=== PATIENT | female | born 1985 | race Caucasian/White ===

== ENCOUNTER 2017-02-12 10:38 | Emergency (ER) | payer OTHER ==
[~2017-02-12] VITALS: Ht 170.2 cm; Wt 45.5 kg
[~2017-02-12 10:38] MED LIST: LEVA500T PO; PERC5TAB12 PO; PROM25TA5 PO
[2017-02-12 10:39] VITALS: BP 132/78; PULSE 90; RESP 20; TEMP 98; O2SAT 99
[2017-02-12 10:58] VITALS: BP 143/67; PULSE 87; RESP 16; TEMP 98.9; O2SAT 100
[2017-02-12] MEDS ORDERED: SODIUM CHLOR 0.9% 1000 ML INJ 1,000 ML IV SCH ×2 (11:22→12:44)
[2017-02-12] MEDS ORDERED: ONDANSETRON HCL 4 MG/2 ML VIAL IVP ONE (11:30)
--- NOTE | 2017-02-12 11:35 | PD ---
HPI Chief Complaint: Cold / Flu Symptoms Time Seen by Provider: 11:32 Travel History International Travel<30 days: No Contact w/Intl Traveler<30days: No Traveled to known affect area: No History of Present Illness HPI 31-year-old female that presents to the ED for evaluation of cold-like symptoms and weakness. Per patient she's had nausea and vomiting as well as diarrhea and generalized weakness for about a week and a half. Per patient she was seen a different hospital and was told that she had the flu. She was not treated with anything per patient. Per patient she's continue her symptoms and the not improving. Per patient she's not had any bowel movements or urine for the past couple days that she cannot keep anything down. Per patient she is dry heaving. Per patient feels very weak. 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 He denies any drug abuse. States having chills and sweats. No sick contacts. No bleeding of any kind. No chest pain or shortness of breath. She denies any vaginal discharge or possibility of . Allergies to codeine, morphine, and mushroom. PFSH Past Medical History Anxiety: Yes Depression: No Cancer: No Cardiovascular Problems: No Chemotherapy: No Diminished Hearing: Yes (RIGHT EAR [place]) Endocrine: No Genitourinary: Yes (UTI'S) Implanted Vascular Access Dvce: No Musculoskeletal: No Neurologic: No Psychiatric: Yes Reproductive: No Respiratory: No Immunizations Current: Yes Pancreatitis: Yes Radiation Therapy: No Influenza Vaccination: No ?: Not LMP: 01/29/17 Menopausal: No : 4 Para: 2 Miscarriage: 1 : 1 Ectopic : Yes (1) Dilation and Curettage (D&C): Yes Past Surgical History Other Surgery: Yes (D&C) Social History Alcohol Use: Yes (20 SHOTS PER DAY (STATES FORMERLY)) Tobacco Use: Yes (1 PPD) Substance Use: Yes (MARIJUANA ) Allergies-Medications (Allergen,Severity, Reaction): Coded Allergies: Morphine (Verified Allergy, Mild, Tachycardia, 02/12/17) Codeine (Verified Allergy, Unknown, UNKNOWN REACTION, 02/12/17) Mushroom (Verified Allergy, Unknown, UNKNOWN REACTION, 02/12/17) Reported Meds & Prescriptions Reported Meds & Active Scripts Active Zofran (Ondansetron HCl) 4 Mg Tab 4 Mg PO Q6HR PRN Amoxicillin 875 Mg Tab 875 Mg PO BID 10 Days Review of Systems Except as stated in HPI: all other systems reviewed are Neg Physical Exam Narrative GENERAL: Well-nourished, well-developed patient in no apparent distress. SKIN: Warm and dry. HEAD: Atraumatic. Normocephalic. EYES: Pupils equal and round reactive to light and accommodation. No scleral icterus. No injection or drainage. ENT: No nasal bleeding or discharge. Mucous membranes pink and moist. TMs are clear with no sign of infection or perforation. No mastoid tenderness. Ear canals are intact bilaterally. No lymphadenopathy. Nostril mucosa is red and moist with clear mucus noted. No sinus tenderness to palpation noted. Tonsils are not enlarged or swollen. No ulvua Deviation. Tongue is midline. NECK: Trachea midline. No JVD. No meningeal signs noted CARDIOVASCULAR: Regular rate and rhythm. RESPIRATORY: No accessory muscle use. Clear to auscultation. Breath sounds equal bilaterally. GASTROINTESTINAL: Abdomen soft, non-tender, nondistended. Hepatic and splenic margins not palpable. MUSCULOSKELETAL: Extremities without clubbing, cyanosis, or edema. No obvious deformities. NEUROLOGICAL: Awake and alert. No obvious cranial nerve deficits. Motor grossly within normal limits. Five out of 5 muscle strength in the arms and legs. Normal speech. PSYCHIATRIC: Appropriate mood and affect; insight and judgment normal. Data Data Last Documented VS Vital Signs Date Time Temp Pulse Resp B/P Pulse Ox O2 Delivery O2 Flow Rate FiO2 02/12/17 10:58 98.9 87 16 143/67 100 Room Air Orders Complete Blood Count With Diff (02/12/17 11:22) Comprehensive Metabolic Panel (02/12/17 11:22) Blood Culture (02/12/17 11:22) Lipase (02/12/17 11:22) Urinalysis - C+S If Indicated (02/12/17 11:22) Magnesium (Mg) (02/12/17 11:22) Thyroid Stimulating Hormone (02/12/17 11:22) Group A Rapid Strep Screen (02/12/17 11:22) Influenzae A/B Antigen (02/12/17 11:22) Chest, Single Ap (02/12/17 11:22) Iv Access Insert/Monitor (02/12/17 11:22) Ecg Monitoring (02/12/17 11:22) Oximetry (02/12/17 11:22) Ondansetron Inj (Zofran Inj) (02/12/17 11:30) Sodium Chlor 0.9% 1000 Ml Inj (Ns 1000 M (02/12/17 11:22) Ed Urine Pregnancytest Poc (02/12/17 11:36) Lactic Acid (02/12/17 11:41) Amoxicillin (Trimox) (02/12/17 12:15) Ketorolac Inj (Toradol Inj) (02/12/17 12:45) Sodium Chlor 0.9% 1000 Ml Inj (Ns 1000 M (02/12/17 12:44) Labs Laboratory Tests Test 02/12/17 02/12/17 11:38 12:05 White Blood Count 6.7 TH/MM3 Red Blood Count 5.05 MIL/MM3 Hemoglobin 15.2 GM/DL Hematocrit 43.6 % Mean Corpuscular Volume 86.2 FL Mean Corpuscular Hemoglobin 30.1 PG Mean Corpuscular Hemoglobin 34.9 % Concent Red Cell Distribution Width 13.3 % Platelet Count 222 TH/MM3 Mean Platelet Volume 7.7 FL Neutrophils (%) (Auto) 57.6 % Lymphocytes (%) (Auto) 31.1 % Monocytes (%) (Auto) 9.8 % Eosinophils (%) (Auto) 1.0 % Basophils (%) (Auto) 0.5 % Neutrophils # (Auto) 3.9 TH/MM3 Lymphocytes # (Auto) 2.1 TH/MM3 Monocytes # (Auto) 0.7 TH/MM3 Eosinophils # (Auto) 0.1 TH/MM3 Basophils # (Auto) 0.0 TH/MM3 CBC Comment DIFF FINAL Differential Comment Sodium Level 137 MEQ/L Potassium Level 3.6 MEQ/L Chloride Level 106 MEQ/L Carbon Dioxide Level 25.4 MEQ/L Anion Gap 6 MEQ/L Blood Urea Nitrogen 10 MG/DL Creatinine 0.50 MG/DL Estimat Glomerular Filtration 146 ML/MIN Rate Random Glucose 80 MG/DL Calcium Level 9.0 MG/DL Magnesium Level 2.0 MG/DL Total Bilirubin 0.3 MG/DL Aspartate Amino Transf 13 U/L (AST/SGOT) Alanine Aminotransferase 16 U/L (ALT/SGPT) Alkaline Phosphatase 55 U/L Total Protein 8.1 GM/DL Albumin 4.1 GM/DL Lipase 77 U/L Thyroid Stimulating Hormone 1.460 uIU/ML 3rd Gen Lactic Acid Level 0.7 mmol/L MDM Medical Decision Making Medical Screen Exam Complete: Yes Emergency Medical Condition: Yes Medical Record Reviewed: Yes Interpretation(s) CBC & BMP Diagram 02/12/17 11:38 LFTS and Lipase WNL lactic acid WNL strep positive influenza negative Last Impressions Chest X-Ray 02/12/17 1122 Signed Impressions: Service Date/Time: Tuesday, February 12, 2017 11:29 - CONCLUSION: 1. No acute cardiopulmonary disease. Kalin Booker MD Differential Diagnosis Dehydration versus pancreatitis versus viral illness versus UTI versus generalized weakness versus pneumonia versus infection Narrative Course 31-year-old female that presents to the ED for evaluation of cold-like symptoms and generalized weakness. Patient was properly examined and was found to have signs and symptoms consistent with appears to be likely viral illness. Labs and imaging were ordered. Patient was given Zofran and IV fluids. Labs and imaging showed no sign of acute disease ordered and positive for strep throat. This is likely the source for infection and why she is feeling so bad that she has not had any treatment for it. Patient was reassured. At this time I recommend treatment of amoxicillin and Zofran. Patient was given 2 L of fluid here as well as Toradol and the first dose of amoxicillin. She was told to follow closely with PCP. Given note for work. See ED for worsening symptoms. Motrin or Tylenol for pain as needed. Diagnosis Primary Impression: Strep throat Patient Instructions: General Instructions Departure Forms: Tests/Procedures, Work Release Enter return to work date: Feb 15, 2017 Additional Instructions: Motrin and Tylenol for pain and fever. You can use [id number] antihistamine as well as well as Mucinex as needed for runny nose and congestion. Cough drops for cough as needed. Drink plenty of fluids. Follow-up with PCP. See ED for worsening symptoms. Med/Other Pt SpecificInfo: Prescription(s) given Scripts Ondansetron (Zofran)4 Mg Tab4 Mg PO Q6HR PRN (NAUSEA OR VOMITING) #20 TAB Prov:Ever Whitfield MD 02/12/17 Amoxicillin 875 Mg [id number] Mg PO BID 10 Days Prov:Ever Whitfield MD 02/12/17 Disposition: 01 DISCHARGE HOME Condition: Stable Bassam Hamlin Feb 12, 2017 11:35
[2017-02-12 11:51] LABS: AUTOMATED NEUTROPHIL # 3.9 TH/MM3 (1.8-7.7); BASOPHIL % 0.5 % (0.0-2.0); EOSINOPHIL # 0.1 TH/MM3 (0-0.4); HEMATOCRIT 43.6 % (35.0-46.0); HEMO FLAGS DIFF FINAL; LYMPH % 31.1 % (9.0-44.0); LYMPHOCYTE # 2.1 TH/MM3 (1.0-4.8); MEAN CELL VOLUME 86.2 FL (80.0-100.0); MEAN CORPUSCULAR HEMOGLOBIN 30.1 PG (27.0-34.0); MEAN CORPUSCULAR HGB CONC 34.9 % (32.0-36.0); MONO % 9.8 % (0.0-8.0); NEUT % 57.6 % (16.0-70.0); PLATELET COUNT 222 TH/MM3 (150-450); RED BLOOD COUNT 5.05 MIL/MM3 (4.00-5.30); RED CELL DISTRIBUTION WIDTH 13.3 % (11.6-17.2); WHITE BLOOD COUNT 6.7 TH/MM3 (4.0-11.0)
--- NOTE | 2017-02-12 11:54 | RADRPT ---
EXAM DATE/TIME: 02/12/2017 11:29 [facility] COMPARISON: No previous studies available for comparison. INDICATIONS : Cough and 'flu' like symptoms. MEDICAL HISTORY : None. SURGICAL HISTORY : None. ENCOUNTER: Initial ACUITY: 1 month PAIN SCORE: 9/10 LOCATION: Bilateral upper chest FINDINGS: A single view of the chest demonstrates the lungs to be symmetrically aerated without evidence of mas s, infiltrate or effusion. The cardiomediastinal contours are unremarkable. Osseous structures are intact. CONCLUSION: 1. No acute cardiopulmonary disease. Kalin Booker MD on February 12, 2017 at 11:52 Board Certified Radiologist. This report was verified electronically.
[2017-02-12] MEDS ORDERED: AMOXICILLIN 875 MG TAB PO ONE (12:15)
[2017-02-12 12:22] LABS: ALT (GPT) 16 U/L (10-53); ANION GAP 6 MEQ/L (5-15); AST (GOT) 13 U/L (15-37); BICARBONATE 25.4 MEQ/L (21.0-32.0); BLOOD UREA NITROGEN 10 MG/DL (7-18); CHLORIDE 106 MEQ/L (98-107); GLOMERULAR FILTRATION RATE 146 ML/MIN (>89); POTASSIUM 3.6 MEQ/L (3.5-5.1); SODIUM (NA) 137 MEQ/L (136-145)
[2017-02-12 12:31] LABS: ALKALINE PHOSPHATASE 55 U/L (45-117); TOTAL BILIRUBIN ADULT 0.3 MG/DL (0.2-1.0)
[2017-02-12] MEDS ORDERED: KETOROLAC TROMETHAMINE 30 MG/ML (IVP) VIAL IV PUSH ONE (12:45)
[2017-02-12] MEDS ORDERED: AMOX875T PO (12:52)
[2017-02-12] MEDS ORDERED: ZOFR4TAB PO (12:52)
[2017-02-12 13:54] LABS: BACTERIA, URINE MOD /hpf; BLOOD, URINE SMALL (NEG); COMMENT (UR) CULTURE INDICATED; CULTURE IF INDICATED CULTURE INDICATED; GLUCOSE,URINE NEG (NEG); KETONE, URINE 40 mg/dL (NEG); MUCUS URINE MANY /lpf (OCC); NITRITE,URINE NEG (NEG); SQUAMOUS EPITHELIAL CELL URINE 8 /hpf (0-5); URINE COLOR YELLOW (YELLW/STRAW)
[2017-02-13] MEDS ORDERED: CEPH500C PO (18:01)
[2017-02-13] MEDS ORDERED: PROM25TA10 PO (20:09)
== END 2017-02-12 13:49 | disposition home or self-care (01) ==
LOC: NEPD 10:38
DX: R05 Cough (principal); J02.0 Streptococcal pharyngitis; B95.0 Streptococcus, group A, as the cause of diseases classified elsewhere; R82.90 Unspecified abnormal findings in urine; R53.1 Weakness; H91.91 Unspecified hearing loss, right ear; F17.210 Nicotine dependence, cigarettes, uncomplicated
CPT/HCPCS: 71010; 80053; 81001; 83605; 83690; 83735; 84443; 84703; 85025; 87040; 87086; 87804; 87880; 96361; 96374; 96375; 99285; J1885; J2405; J7030

== ENCOUNTER 2017-02-13 15:25 | Emergency (ER) | payer OTHER ==
[~2017-02-13] VITALS: Ht 170.2 cm; Wt 48.0 kg
[~2017-02-13 15:25] MED LIST changes: +AMOX875T PO; -LEVA500T PO; -PERC5TAB12 PO; -PROM25TA5 PO; +ZOFR4TAB PO
[2017-02-13 15:29] VITALS: BP 112/71; PULSE 148; RESP 20; TEMP 98; O2SAT 97
--- NOTE | 2017-02-13 15:30 | PD ---
Physical Exam Date Seen by Provider: Feb 13, 2017 Time Seen by Provider: 15:35 Data Data Last Documented VS Vital Signs Date Time Temp Pulse Resp B/P Pulse Ox O2 Delivery O2 Flow Rate FiO2 02/13/17 20:15 68 16 120/78 98 02/13/17 19:18 Room Air 02/13/17 16:09 2 02/13/17 15:29 98.0 Orders Complete Blood Count With Diff (02/13/17 15:42) Comprehensive Metabolic Panel (02/13/17 15:42) Lipase (02/13/17 15:42) Lactic Acid (02/13/17 15:42) Urinalysis - C+S If Indicated (02/13/17 15:42) Iv Access Insert/Monitor (02/13/17 15:42) Ecg Monitoring (02/13/17 15:42) Oximetry (02/13/17 15:42) NPO (02/13/17 15:42) Ondansetron Inj (Zofran Inj) (02/13/17 15:45) Sodium Chlor 0.9% 1000 Ml Inj (Ns 1000 M (02/13/17 15:42) Sodium Chloride 0.9% Flush (Ns Flush) (02/13/17 15:45) Al-Mag Hy-Si 40-40-4 Mg/Ml Liq (Mag-Al P (02/13/17 15:45) Lidocaine 2% Viscous (Xylocaine 2% Visco (02/13/17 15:45) Orthostatic Vital Signs (02/13/17 15:42) Ceftriaxone Inj (Rocephin Inj) (02/13/17 16:51) Ondansetron Inj (Zofran Inj) (02/13/17 17:30) Urine Culture (02/13/17 17:15) Azithromycin Inj (Zithromax Inj) (02/13/17 18:00) Metronidazole (Flagyl) (02/13/17 18:00) Fluconazole (Diflucan) (02/13/17 18:00) Metoclopramide Inj (Reglan Inj) (02/13/17 19:30) Diphenhydramine Inj (Benadryl Inj) (02/13/17 19:30) Sodium Chlor 0.9% 1000 Ml Inj (Ns 1000 M (02/13/17 19:30) Labs Laboratory Tests Test 02/13/17 02/13/17 16:10 17:15 White Blood Count 6.7 TH/MM3 Red Blood Count 4.43 MIL/MM3 Hemoglobin 13.4 GM/DL Hematocrit 38.5 % Mean Corpuscular Volume 86.9 FL Mean Corpuscular Hemoglobin 30.3 PG Mean Corpuscular Hemoglobin 34.9 % Concent Red Cell Distribution Width 13.2 % Platelet Count 217 TH/MM3 Mean Platelet Volume 8.0 FL Neutrophils (%) (Auto) 44.9 % Lymphocytes (%) (Auto) 44.1 % Monocytes (%) (Auto) 8.1 % Eosinophils (%) (Auto) 2.3 % Basophils (%) (Auto) 0.6 % Neutrophils # (Auto) 3.0 TH/MM3 Lymphocytes # (Auto) 2.9 TH/MM3 Monocytes # (Auto) 0.5 TH/MM3 Eosinophils # (Auto) 0.2 TH/MM3 Basophils # (Auto) 0.0 TH/MM3 CBC Comment DIFF FINAL Differential Comment Sodium Level 140 MEQ/L Potassium Level 3.6 MEQ/L Chloride Level 108 MEQ/L Carbon Dioxide Level 23.1 MEQ/L Anion Gap 9 MEQ/L Blood Urea Nitrogen 7 MG/DL Creatinine 0.50 MG/DL Estimat Glomerular Filtration 146 ML/MIN Rate Random Glucose 75 MG/DL Lactic Acid Level 0.7 mmol/L Calcium Level 8.2 MG/DL Total Bilirubin 0.2 MG/DL Aspartate Amino Transf 15 U/L (AST/SGOT) Alanine Aminotransferase 19 U/L (ALT/SGPT) Alkaline Phosphatase 44 U/L Total Protein 6.7 GM/DL Albumin 3.4 GM/DL Lipase 77 U/L Urine Color YELLOW Urine Turbidity CLOUDY Urine pH 6.0 Urine Specific [place] 1.015 Urine Protein TRACE mg/dL Urine Glucose (UA) NEG mg/dL Urine Ketones NEG mg/dL Urine Occult Blood TRACE Urine Nitrite NEG Urine Bilirubin NEG Urine Urobilinogen LESS THAN 2.0 MG/DL Urine Leukocyte Esterase LARGE Urine RBC 35 /hpf Urine WBC 54 /hpf Urine Squamous Epithelial 67 /hpf Cells Urine Transitional Epithelial 3 /hpf Cells Urine Bacteria OCC /hpf Urine Mucus FEW /lpf Urine Trichomonas OCC Urine Yeast (Budding) OCC Microscopic Urinalysis Comment CULTURE INDICATED MDM Supervised Visit with MARTI: No Narrative Course 31 YO F with complaint of abdominal pain, weakness, N/V, dehydration. + F/C. Vitals reviewed. Seen in triage, awaiting bed placement. Scripts Promethazine (Phenergan)25 Mg [id number] Mg PO Q6H PRN (NAUSEA OR VOMITING) #12 TAB Ref 0 Prov:Dudley Arauz MD 02/13/17 Cephalexin 500 Mg [id number] Mg PO Q8H #21 CAP Prov:Treva Lux MD 02/13/17 Sara Coombs Feb 13, 2017 15:30
--- NOTE | 2017-02-13 15:35 | PD ---
HPI Chief Complaint: GI Complaint Time Seen by Provider: 15:34 Travel History International Travel<30 days: No Contact w/Intl Traveler<30days: No Traveled to known affect area: No History of Present Illness HPI 31-year-old female presents to emergency department after a near syncopal event, with history of nausea vomiting and strep throat causing severe sore throat. She was seen yesterday and diagnosed with strep throat given amoxicillin and Zofran. Patient states she's unable to keep any fluids or food down. She is feeling very weak. She states she got up out of bed earlier today and fell down but did not completely pass out. She did not hit her head or any other injuries reported. She states decreased urine output. Her main complaint is of throat pain which she states is a 10 out of 10. He does have some nausea and vomiting but no significant abdominal or flank pain. She is allergic to codeine, morphine, and mushrooms. PFSH Past Medical History Anxiety: Yes Depression: No Cancer: No Cardiovascular Problems: No Chemotherapy: No Diminished Hearing: Yes (RIGHT EAR [place]) Endocrine: No Genitourinary: Yes (UTI'S) Implanted Vascular Access Dvce: No Musculoskeletal: No Neurologic: No Psychiatric: Yes Reproductive: No Respiratory: No Immunizations Current: Yes Pancreatitis: Yes Radiation Therapy: No ?: Unknown LMP: 01/15/17 Menopausal: No : 4 Para: 2 Miscarriage: 1 : 1 Ectopic : Yes (1) Dilation and Curettage (D&C): Yes Past Surgical History Other Surgery: Yes (D&C) Social History Alcohol Use: Yes (20 SHOTS PER DAY (STATES FORMERLY)) Tobacco Use: Yes (1 PPD) Substance Use: Yes (MARIJUANA ) Allergies-Medications (Allergen,Severity, Reaction): Coded Allergies: Morphine (Verified Allergy, Mild, Tachycardia, 02/13/17) Codeine (Verified Allergy, Unknown, UNKNOWN REACTION, 02/13/17) Mushroom (Verified Allergy, Unknown, UNKNOWN REACTION, 02/13/17) Reported Meds & Prescriptions Reported Meds & Active Scripts Active Zofran (Ondansetron HCl) 4 Mg Tab 4 Mg PO Q6HR PRN Amoxicillin 875 Mg Tab 875 Mg PO BID 10 Days Review of Systems Except as stated in HPI: all other systems reviewed are Neg General / Constitutional: Positive: Fever, Chills Eyes: No: Visual changes HENT: Positive: Headaches, Lightheadedness, Sore Throat, No: Vertigo, Rhinitis , Rhinorrhea, Congestion, Nosebleed, Neck Stiffness, Neck Pain, Gingival Bleeding, Dental Difficulties, Ear Discharge, Earache Cardiovascular: No: Chest Pain or Discomfort Respiratory: No: Shortness of Breath Gastrointestinal: Positive: Nausea, Vomiting, No: Diarrhea, Abdominal Pain Genitourinary: Positive: Decreased Urinary Output, No: Dysuria Musculoskeletal: No: Pain Skin: No Rash Neurologic: Positive: Syncope (near syncope noted), No: Weakness Psychiatric: No: Depression Endocrine: No: Polydipsia Hematologic/Lymphatic: No: Easy Bruising Physical Exam Narrative GENERAL: Patient appears ill but not septic. She appears weak. SKIN: Warm and dry. Normal color. Somewhat decreased turgor. HEAD: Atraumatic. Normocephalic. EYES: Pupils equal and round. No scleral icterus. No injection or drainage. ENT: No nasal bleeding or discharge. Mucous membranes pink and dry. TMs are clear bilaterally. Posterior pharynx is mild to moderate erythema generally without significant swelling or tonsillitis. Airway is patent. Uvula is midline. NECK: Trachea midline. Supple nontender without significant lymphadenopathy. CARDIOVASCULAR: Regular rate and rhythm. RESPIRATORY: No accessory muscle use. Clear to auscultation. Breath sounds equal bilaterally. GASTROINTESTINAL: Abdomen soft, mild generalized tenderness, nondistended. No CVA tenderness. Hepatic and splenic margins not palpable. MUSCULOSKELETAL: Extremities without clubbing, cyanosis, or edema. No obvious deformities. NEUROLOGICAL: Awake and alert. No obvious cranial nerve deficits. Motor grossly within normal limits. Five out of 5 muscle strength in the arms and legs. Normal speech. PSYCHIATRIC: Appropriate mood and affect; insight and judgment normal. Data Data Last Documented VS Vital Signs Date Time Temp Pulse Resp B/P Pulse Ox O2 Delivery O2 Flow Rate FiO2 02/13/17 16:09 97 Nasal Cannula 2 02/13/17 16:08 60 18 113/74 76 18 138/83 02/13/17 15:29 98.0 Orders Complete Blood Count With Diff (02/13/17 15:42) Comprehensive Metabolic Panel (02/13/17 15:42) Lipase (02/13/17 15:42) Lactic Acid (02/13/17 15:42) Urinalysis - C+S If Indicated (02/13/17 15:42) Iv Access Insert/Monitor (02/13/17 15:42) Ecg Monitoring (02/13/17 15:42) Oximetry (02/13/17 15:42) NPO (02/13/17 15:42) Ondansetron Inj (Zofran Inj) (02/13/17 15:45) Sodium Chlor 0.9% 1000 Ml Inj (Ns 1000 M (02/13/17 15:42) Sodium Chloride 0.9% Flush (Ns Flush) (02/13/17 15:45) Al-Mag Hy-Si 40-40-4 Mg/Ml Liq (Mag-Al P (02/13/17 15:45) Lidocaine 2% Viscous (Xylocaine 2% Visco (02/13/17 15:45) Orthostatic Vital Signs (02/13/17 15:42) Ceftriaxone Inj (Rocephin Inj) (02/13/17 16:51) Ondansetron Inj (Zofran Inj) (02/13/17 17:30) Urine Culture (02/13/17 17:15) Labs Laboratory Tests Test 02/13/17 02/13/17 16:10 17:15 White Blood Count 6.7 TH/MM3 Red Blood Count 4.43 MIL/MM3 Hemoglobin 13.4 GM/DL Hematocrit 38.5 % Mean Corpuscular Volume 86.9 FL Mean Corpuscular Hemoglobin 30.3 PG Mean Corpuscular Hemoglobin 34.9 % Concent Red Cell Distribution Width 13.2 % Platelet Count 217 TH/MM3 Mean Platelet Volume 8.0 FL Neutrophils (%) (Auto) 44.9 % Lymphocytes (%) (Auto) 44.1 % Monocytes (%) (Auto) 8.1 % Eosinophils (%) (Auto) 2.3 % Basophils (%) (Auto) 0.6 % Neutrophils # (Auto) 3.0 TH/MM3 Lymphocytes # (Auto) 2.9 TH/MM3 Monocytes # (Auto) 0.5 TH/MM3 Eosinophils # (Auto) 0.2 TH/MM3 Basophils # (Auto) 0.0 TH/MM3 CBC Comment DIFF FINAL Differential Comment Sodium Level 140 MEQ/L Potassium Level 3.6 MEQ/L Chloride Level 108 MEQ/L Carbon Dioxide Level 23.1 MEQ/L Anion Gap 9 MEQ/L Blood Urea Nitrogen 7 MG/DL Creatinine 0.50 MG/DL Estimat Glomerular Filtration 146 ML/MIN Rate Random Glucose 75 MG/DL Lactic Acid Level 0.7 mmol/L Calcium Level 8.2 MG/DL Total Bilirubin 0.2 MG/DL Aspartate Amino Transf 15 U/L (AST/SGOT) Alanine Aminotransferase 19 U/L (ALT/SGPT) Alkaline Phosphatase 44 U/L Total Protein 6.7 GM/DL Albumin 3.4 GM/DL Lipase 77 U/L Urine Color YELLOW Urine Turbidity CLOUDY Urine pH 6.0 Urine Specific [place] 1.015 Urine Protein TRACE mg/dL Urine Glucose (UA) NEG mg/dL Urine Ketones NEG mg/dL Urine Occult Blood TRACE Urine Nitrite NEG Urine Bilirubin NEG Urine Urobilinogen LESS THAN 2.0 MG/DL Urine Leukocyte Esterase LARGE Urine RBC 35 /hpf Urine WBC 54 /hpf Urine Squamous Epithelial 67 /hpf Cells Urine Transitional Epithelial 3 /hpf Cells Urine Bacteria OCC /hpf Urine Mucus FEW /lpf Urine Trichomonas OCC Urine Yeast (Budding) OCC Microscopic Urinalysis Comment CULTURE INDICATED MDM Medical Decision Making Medical Screen Exam Complete: Yes Emergency Medical Condition: Yes Medical Record Reviewed: Yes Differential Diagnosis Near syncope. Dehydration. Electrolyte imbalance. Intractable nausea and vomiting. Pharyngeal pain. Narrative Course Patient is felt to be medically stable at time of exam. Labs ordered including CBC, CMP, urinalysis, lipase and lactic acid. IV access is obtained patient is given 2000 mL of saline bolus. Patient is given Zofran 4 mg IV as well as Magic mouthwash by mouth. Orthostatics are checked. Patient is mildly orthostatic. CBC is unremarkable. CMP is unremarkable, lactic acid and lipase is normal. Urinalysis shows probable urinary tract infection. Patient is given 1000 milligrams Rocephin IV. Patient got up to urinate, and developed nausea and vomiting 1. Patient is given additional dose of Zofran 4 mg IV. Urinalysis shows large leukocyte esterase, 35 RBCs per high-power field. 54 wbc 's per high-power field. Occasional bacteria. Occasional Trichomonas, and occasional budding yeast. Patient is given 2000 mg metronidazole by mouth now. Patient is given 200 mg Diflucan by mouth now. Patient is given 500 mg azithromycin IV now. Patient is improved after second dose of Zofran and IV fluids. Patient was discharged home on Keflex 500 mg 3 times a day 7 days. Patient is to rest, push fluids, and take Zofran 4 mg every 6 hours. She was prescribed this yesterday. Patient is to follow-up with the health department or local primary care physician. Patient should return the emergency Department with worsening symptoms as discussed as needed. Diagnosis Primary Impression: Urinary tract infection Qualified Code: N30.00 - Acute cystitis without hematuria Additional Impressions: Trichomoniasis Yeast infection Nausea and vomiting Qualified Code: R11.2 - Non-intractable vomiting with nausea, unspecified vomiting type Referrals: [facility] Dept. 1 week Patient Instructions: Dysuria (ED), General Instructions, Trichomoniasis (ED), Vulvovaginal Candidiasis (ED) Additional Instructions: Urinalysis shows large leukocyte esterase, 35 RBCs per high-power field. 54 wbc 's per high-power field. Occasional bacteria. Occasional Trichomonas, and occasional budding yeast. Patient is given 2000 mg metronidazole by mouth now. Patient is given 200 mg Diflucan by mouth now. Patient is given 500 mg azithromycin IV now. Patient is improved after second dose of Zofran and IV fluids. Patient was discharged home on Keflex 500 mg 3 times a day 7 days. Patient is to rest, push fluids, and take Zofran 4 mg every 6 hours. She was prescribed this yesterday. Patient is to follow-up with the health department or local primary care physician. Patient should return the emergency Department with worsening symptoms as discussed as needed. Med/Other Pt SpecificInfo: Prescription(s) given Disposition: DISCHARGE HOME Condition: Stable Gustavo Turner Feb 13, 2017 15:35
[2017-02-13] MEDS ORDERED: LIDOCAINE VISCOUS 2% SOLN 15 ML UDC PO ONE (15:45)
[2017-02-13] MEDS ORDERED: ONDANSETRON HCL 4 MG/2 ML VIAL IVP ONE (15:45)
[2017-02-13] MEDS ORDERED: SODIUM CHLORIDE 0.9% FLUSH 10 ML FLUSH IV FLUSH PRN (15:45)
[2017-02-13] MEDS ORDERED: ALUMINUM/MAGNESIUM/SIMETH 30 ML CUP PO ONE (15:45)
[2017-02-13] MEDS: SODIUM CHLOR 0.9% 1000 ML INJ 1,000 ML IV SCH ×2 (16:06→16:55)
[2017-02-13 16:08] VITALS: BP_SYST 113; BP_SYST 138; BP_DIAS 74; BP_DIAS 83; RESP 18
[2017-02-13 16:09] VITALS: O2SAT 97
[2017-02-13 16:49] LABS: BASOPHIL % 0.6 % (0.0-2.0); EOSINOPHIL # 0.2 TH/MM3 (0-0.4); EOSINOPHIL % 2.3 % (0.0-4.0); HEMATOCRIT 38.5 % (35.0-46.0); HEMO FLAGS DIFF FINAL; LYMPH % 44.1 % (9.0-44.0); LYMPHOCYTE # 2.9 TH/MM3 (1.0-4.8); MEAN CELL VOLUME 86.9 FL (80.0-100.0); MEAN CORPUSCULAR HEMOGLOBIN 30.3 PG (27.0-34.0); MEAN CORPUSCULAR HGB CONC 34.9 % (32.0-36.0); MONO % 8.1 % (0.0-8.0); NEUT % 44.9 % (16.0-70.0); PLATELET COUNT 217 TH/MM3 (150-450); RED BLOOD COUNT 4.43 MIL/MM3 (4.00-5.30); RED CELL DISTRIBUTION WIDTH 13.2 % (11.6-17.2); WHITE BLOOD COUNT 6.7 TH/MM3 (4.0-11.0)
[2017-02-13] MEDS ORDERED: cefTRIAXone INJ 1,000 MG in SODIUM CHLORIDE 0.9% INJ 100 ML IV STA (16:51)
[2017-02-13 17:08] LABS: ALKALINE PHOSPHATASE 44 U/L (45-117); ALT (GPT) 19 U/L (10-53); ANION GAP 9 MEQ/L (5-15); AST (GOT) 15 U/L (15-37); BICARBONATE 23.1 MEQ/L (21.0-32.0); BLOOD UREA NITROGEN 7 MG/DL (7-18); CHLORIDE 108 MEQ/L (98-107); GLOMERULAR FILTRATION RATE 146 ML/MIN (>89); POTASSIUM 3.6 MEQ/L (3.5-5.1); SODIUM (NA) 140 MEQ/L (136-145); TOTAL BILIRUBIN ADULT 0.2 MG/DL (0.2-1.0)
[2017-02-13] MEDS ORDERED: ONDANSETRON HCL 4 MG/2 ML VIAL IV PUSH ONE (17:30)
[2017-02-13 17:40] LABS: BACTERIA, URINE OCC /hpf; BLOOD, URINE TRACE (NEG); COMMENT (UR) CULTURE INDICATED; CULTURE IF INDICATED CULTURE INDICATED; GLUCOSE,URINE NEG (NEG); KETONE, URINE NEG (NEG); MUCUS URINE FEW /lpf (OCC); NITRITE,URINE NEG (NEG); SQUAMOUS EPITHELIAL CELL URINE 67 /hpf (0-5); TRANSITIONAL EPI CELLS, URINE 3 /hpf; URINE COLOR YELLOW (YELLW/STRAW)
[2017-02-13] MEDS ORDERED: FLUCONAZOLE 200 MG TAB PO ONE (18:00)
[2017-02-13] MEDS ORDERED: AZITHROMYCIN INJ 500 MG in SODIUM CHLOR 0.9% 250 ML INJ 250 ML IV ONE (18:00)
[2017-02-13] MEDS ORDERED: metroNIDAZOLE 500 MG TAB PO ONE (18:00)
[2017-02-13] MEDS ORDERED: CEPH500C PO (18:01)
[2017-02-13 18:41] VITALS: BP 110/72; PULSE 63; RESP 18; O2SAT 97
[2017-02-13 19:18] VITALS: BP 115/79; PULSE 79; RESP 17; O2SAT 99
[2017-02-13] MEDS ORDERED: SODIUM CHLOR 0.9% 1000 ML INJ 1,000 ML IV ONE (19:30)
[2017-02-13] MEDS ORDERED: METOCLOPRAMIDE HCL 10 MG/2 ML VIAL IV PUSH ONE (19:30)
[2017-02-13] MEDS ORDERED: diphenhydrAMINE HCL 50 MG/ML VIAL IV PUSH ONE (19:30)
--- NOTE | 2017-02-13 19:31 | PD ---
Data Data Last Documented VS Vital Signs Date Time Temp Pulse Resp B/P Pulse Ox O2 Delivery O2 Flow Rate FiO2 02/13/17 20:15 68 16 120/78 98 02/13/17 19:18 Room Air 02/13/17 16:09 2 02/13/17 15:29 98.0 Orders Complete Blood Count With Diff (02/13/17 15:42) Comprehensive Metabolic Panel (02/13/17 15:42) Lipase (02/13/17 15:42) Lactic Acid (02/13/17 15:42) Urinalysis - C+S If Indicated (02/13/17 15:42) Iv Access Insert/Monitor (02/13/17 15:42) Ecg Monitoring (02/13/17 15:42) Oximetry (02/13/17 15:42) NPO (02/13/17 15:42) Ondansetron Inj (Zofran Inj) (02/13/17 15:45) Sodium Chlor 0.9% 1000 Ml Inj (Ns 1000 M (02/13/17 15:42) Sodium Chloride 0.9% Flush (Ns Flush) (02/13/17 15:45) Al-Mag Hy-Si 40-40-4 Mg/Ml Liq (Mag-Al P (02/13/17 15:45) Lidocaine 2% Viscous (Xylocaine 2% Visco (02/13/17 15:45) Orthostatic Vital Signs (02/13/17 15:42) Ceftriaxone Inj (Rocephin Inj) (02/13/17 16:51) Ondansetron Inj (Zofran Inj) (02/13/17 17:30) Urine Culture (02/13/17 17:15) Azithromycin Inj (Zithromax Inj) (02/13/17 18:00) Metronidazole (Flagyl) (02/13/17 18:00) Fluconazole (Diflucan) (02/13/17 18:00) Metoclopramide Inj (Reglan Inj) (02/13/17 19:30) Diphenhydramine Inj (Benadryl Inj) (02/13/17 19:30) Sodium Chlor 0.9% 1000 Ml Inj (Ns 1000 M (02/13/17 19:30) Labs Laboratory Tests Test 02/13/17 02/13/17 16:10 17:15 White Blood Count 6.7 TH/MM3 Red Blood Count 4.43 MIL/MM3 Hemoglobin 13.4 GM/DL Hematocrit 38.5 % Mean Corpuscular Volume 86.9 FL Mean Corpuscular Hemoglobin 30.3 PG Mean Corpuscular Hemoglobin 34.9 % Concent Red Cell Distribution Width 13.2 % Platelet Count 217 TH/MM3 Mean Platelet Volume 8.0 FL Neutrophils (%) (Auto) 44.9 % Lymphocytes (%) (Auto) 44.1 % Monocytes (%) (Auto) 8.1 % Eosinophils (%) (Auto) 2.3 % Basophils (%) (Auto) 0.6 % Neutrophils # (Auto) 3.0 TH/MM3 Lymphocytes # (Auto) 2.9 TH/MM3 Monocytes # (Auto) 0.5 TH/MM3 Eosinophils # (Auto) 0.2 TH/MM3 Basophils # (Auto) 0.0 TH/MM3 CBC Comment DIFF FINAL Differential Comment Sodium Level 140 MEQ/L Potassium Level 3.6 MEQ/L Chloride Level 108 MEQ/L Carbon Dioxide Level 23.1 MEQ/L Anion Gap 9 MEQ/L Blood Urea Nitrogen 7 MG/DL Creatinine 0.50 MG/DL Estimat Glomerular Filtration 146 ML/MIN Rate Random Glucose 75 MG/DL Lactic Acid Level 0.7 mmol/L Calcium Level 8.2 MG/DL Total Bilirubin 0.2 MG/DL Aspartate Amino Transf 15 U/L (AST/SGOT) Alanine Aminotransferase 19 U/L (ALT/SGPT) Alkaline Phosphatase 44 U/L Total Protein 6.7 GM/DL Albumin 3.4 GM/DL Lipase 77 U/L Urine Color YELLOW Urine Turbidity CLOUDY Urine pH 6.0 Urine Specific [place] 1.015 Urine Protein TRACE mg/dL Urine Glucose (UA) NEG mg/dL Urine Ketones NEG mg/dL Urine Occult Blood TRACE Urine Nitrite NEG Urine Bilirubin NEG Urine Urobilinogen LESS THAN 2.0 MG/DL Urine Leukocyte Esterase LARGE Urine RBC 35 /hpf Urine WBC 54 /hpf Urine Squamous Epithelial 67 /hpf Cells Urine Transitional Epithelial 3 /hpf Cells Urine Bacteria OCC /hpf Urine Mucus FEW /lpf Urine Trichomonas OCC Urine Yeast (Budding) OCC Microscopic Urinalysis Comment CULTURE INDICATED MDM Supervised Visit with MARTI: Yes Narrative Course I, Dr. Arauz], have reviewed the advance practice practitioner's documentation and am in agreement, met with the patient face to face, made the diagnosis, and the medical decision making was done by me. *My assessment and Findings: This is a 31-year-old female who is here for evaluation of sore throat generalized fatigue and dizziness. Was evaluated by ED Johnny GUSMAN, patient did have Trichomonas in her urine and she understands this. I was a asked to evaluate the patient sometime after Mr. Turner and Dr. lynch had left for the night is a patient states she's having epigastric pain. I reviewed her labs and lipase is normal. She states she's been having some nausea and vomiting. The antibiotic she has been put on for strep throat certainly could be attributed to this. Her abdomen is benign. She was given nausea medicine and fluids and she is beginning to feel better. Discussed with her pushing by mouth fluids at home bland diet return to ED criteria. She is agreeable. She stable for discharge at this time. Diagnosis Primary Impression: Urinary tract infection Qualified Code: N30.00 - Acute cystitis without hematuria Additional Impressions: Trichomoniasis Yeast infection Nausea and vomiting Qualified Code: R11.2 - Non-intractable vomiting with nausea, unspecified vomiting type Referrals: [facility] Dept. 1 week Patient Instructions: General Instructions, Trichomoniasis (ED), Vulvovaginal Candidiasis (ED), Dysuria (ED) Departure Forms: Tests/Procedures Additional Instruction: Urinalysis shows large leukocyte esterase, 35 RBCs per high-power field. 54 wbc 's per high-power field. Occasional bacteria. Occasional Trichomonas, and occasional budding yeast. Patient is given 2000 mg metronidazole by mouth now. Patient is given 200 mg Diflucan by mouth now. Patient is given 500 mg azithromycin IV now. Patient is improved after second dose of Zofran and IV fluids. Patient was discharged home on Keflex 500 mg 3 times a day 7 days. Patient is to rest, push fluids, and take Zofran 4 mg every 6 hours. She was prescribed this yesterday. Patient is to follow-up with the health department or local primary care physician. Patient should return the emergency Department with worsening symptoms as discussed as needed. Scripts Promethazine (Phenergan)25 Mg [id number] Mg PO Q6H PRN (NAUSEA OR VOMITING) #12 TAB Ref 0 Prov:Dudley Arauz MD 02/13/17 Cephalexin 500 Mg [id number] Mg PO Q8H #21 CAP Prov:Treva Lux MD 02/13/17 Disposition: 01 DISCHARGE HOME Condition: Stable Dudley Arauz MD Feb 13, 2017 19:31
[2017-02-13] MEDS ORDERED: PROM25TA10 PO (20:09)
[2017-02-13 20:15] VITALS: BP 120/78
== END 2017-02-13 20:39 | disposition home or self-care (01) ==
LOC: NEPD 15:25
DX: N39.0 Urinary tract infection, site not specified (principal); A59.9 Trichomoniasis, unspecified; B37.9 Candidiasis, unspecified; R11.2 Nausea with vomiting, unspecified; R53.81 Other malaise; R42 Dizziness and giddiness; F41.9 Anxiety disorder, unspecified; K85.90 Acute pancreatitis without necrosis or infection, unspecified; F17.200 Nicotine dependence, unspecified, uncomplicated
CPT/HCPCS: 80053; 81001; 83605; 83690; 85025; 87086; 96361; 96365; 96367; 96375; 96376; 99284; J0456; J0696; J1200; J2405; J2765; J7030; J7050